=== PATIENT | male | born 1970 | race Caucasian/White ===

== ENCOUNTER 2018-09-29 06:45 | Emergency (ER) | payer BC, MEDICAID ==
[2018-09-29 06:50] VITALS: TEMP 98.5
--- NOTE | 2018-09-29 07:18 | XR ---
EXAMINATION TYPE: XR chest 2V DATE OF EXAM: 09/29/2018 COMPARISON: None HISTORY: 47-year-old male with pain and cough TECHNIQUE: PA and lateral views FINDINGS: Low lung volumes and cardiovascular markings. Heart normal size. Mild interstitial prominence is a ov erall chronic appearance. Slight eventration anterior hemidiaphragm. No lucero consolidation or pleura l effusion. IMPRESSION: Mild interstitial prominence, probably chronic, possible bronchitis/asthma. Otherwise, no acute proce ss seen.
[2018-09-29] MEDS ORDERED: KETOROLAC 30 MG/ML 1 ML VIAL IM STA (07:37)
[2018-09-29] MEDS ORDERED: LIDOCAINE 5% PATCH TOPICAL STA (07:37)
--- NOTE | 2018-09-29 07:40 | ED ---
General Adult HPI - General Chief complaint: Shortness of Breath Stated complaint: cough,chest pain Source: patient, family Mode of arrival: wheelchair Limitations: no limitations - Related Data Home Medications Medication Instructions Recorded Confirmed metFORMIN HCL 1,000 mg PO BID 10/07/16 10/07/16 Allergies Allergy/AdvReac Type Severity Reaction Status Date / Time No Known Allergies Allergy Verified 09/29/18 06:50 Review of Systems ROS Statement: Those systems with pertinent positive or pertinent negative responses have been documented in the HPI. ROS Other: All systems not noted in ROS Statement are negative. Past Medical History Past Medical History: Diabetes Mellitus, Hyperlipidemia, Hypertension History of Any Multi-Drug Resistant Organisms: None Reported Past Surgical History: Bariatric Surgery Additional Past Surgical History / Comment(s): lap band Past Anesthesia/Blood Transfusion Reactions: Unable to Obtain Past Psychological History: No Psychological Hx Reported Smoking Status: Never smoker Past Alcohol Use History: None Reported Past Drug Use History: None Reported General Exam Limitations: no limitations Course Vital Signs 09/29/18 06:48 Temperature 98.5 F Pulse Rate 93 Respiratory 20 Rate Blood Pressure 153/96 O2 Sat by Pulse 98 Oximetry Medical Decision Making - Medical Decision Making Dictation was produced using [email or web address] dictation software. please excuse any grammatical, word or spelling errors. Chief Complaint: 47-year-old male with past medical history diabetes hyperlipidemia and hypertension presents with right-sided chest pain. History of Present Illness: He is a 47-year-old male. He presents with right- sided chest pain. Patient has been feeling sick for the last 5 days. Today he came to the emergency department as well as coughing he immediately felt intense right-sided sharp chest pain. Troponin the household is sick. Patient states his coughing and flulike symptoms have improved. Patient denies any shortness of breath. Denies any lower extremity symptoms. The ROS documented in this emergency department record has been reviewed and confirmed by me. Those systems with pertinent positive or negative responses have been documented in the HPI. All other systems are other negative and/or noncontributory. PHYSICAL EXAM: General Impression: Alert and oriented x3, not in acute distress HEENT: Normocephalic atraumatic, extra-ocular movements intact, pupils equal and reactive to light bilaterally, mucous membranes moist. Cardiovascular: Heart regular rate and rhythm, S1&S2 audible, no murmurs, rubs or gallops Chest: Lungs clear to auscultation bilaterally, no rhonchi, no wheeze, no rales Abdomen: Bowel sounds present, abdomen soft, non-tender, non-distended, no organomegaly Musculoskeletal: Pulses present and equal in all extremities, no peripheral edema Motor: Power 5/5 bilaterally, no focal deficits noted Neurological: CN II-XII grossly intact, no focal motor or sensory deficits noted Skin: Intact with no visualized rashes Psych: Normal affect and mood ED course:-year-old male 47-year-old male with clinical presentation consistent with acute chest strain secondary to coughing. Vital signs upon arrival are within acceptable limits. Influenza test was performed with positive results for influenza A. Chest x-ray was obtained showing mild interstitial prominence. Discussed with secondary to viral etiology. Patient given lidocaine patch and Toradol IM shot.. Told to rest for today and tomorrow. Advised to stay away from their old very young and possibly . Rest of arm care physician upon discharge. - Lab Data Lab Results 09/29/18 Range/Units 06:58 Influenza Type A RNA Detected H (Not Detectd) Influenza Type B (PCR) Not Detected (Not Detectd) Disposition Clinical Impression: Chest wall muscle strain Disposition: HOME SELF-CARE Condition: Good Instructions: Chest Pain (ED) Is patient prescribed a controlled substance at d/c from ED?: No Referrals: Jeffrey Herrera III, MD [Primary Care Provider] - 1-2 days Time of Disposition: 07:39
[2018-09-29 08:00] VITALS: BP 158/94; PULSE 91; RESP 18
== END 2018-09-29 08:00 | disposition home or self-care (01) ==
LOC: EC 06:45
DX: S29.011A Strain of muscle and tendon of front wall of thorax, initial encounter (principal); J11.1 Influenza due to unidentified influenza virus with other respiratory manifestations; E11.9 Type 2 diabetes mellitus without complications; Z79.84 Long term (current) use of oral hypoglycemic drugs; Z98.84 Bariatric surgery status; X50.9XXA Other and unspecified overexertion or strenuous movements or postures, initial encounter
CPT/HCPCS: 87502; 71046; 99285; 96372; J1885

== ENCOUNTER 2018-10-22 18:24 | Observation (INO) | payer MEDICAID ==
--- NOTE | 2018-10-22 18:33 | US ---
EXAMINATION TYPE: US venous doppler duplex LE LT DATE OF EXAM: 10/22/2018 6:13 PM COMPARISON: NONE CLINICAL HISTORY: M79.605 Pain in left leg. SIDE PERFORMED: TECHNIQUE: The lower extremity deep venous system is examined utilizing real time linear array sonog raya with graded compression, doppler sonography and color-flow sonography. VESSELS IMAGED: External Iliac Vein (EIV) Common Femoral Vein Deep Femoral Vein Greater Saphenous Vein * Femoral Vein Popliteal Vein Small Saphenous Vein * Proximal Calf Veins (* superficial vessels) Left Leg: Positive for DVT from EIV through distal femoral vein. There is some flow in popliteal v, but this vessel is not compressible. IMPRESSION: There is evidence of acute deep venous thrombosis in the left femoral vein. There is also involvement of the external iliac vein.
[2018-10-22] MEDS ORDERED: HEPARIN SODIUM,PORCINE 10,000 UNIT/ML 1 ML VIAL IV ONE (18:55)
[2018-10-22] MEDS ORDERED: HEPARIN SODIUM,PORCINE 5,000 UNIT/ML 1 ML VIAL IV PRN (18:55)
[2018-10-22] MEDS ORDERED: NALOXONE 0.4 MG/ML 1 ML VIAL IV PRN (18:56)
--- NOTE | 2018-10-22 19:00 | ED ---
General Adult HPI - General Chief complaint: Extremity Problem,Nontraumatic Stated complaint: positive DVT Time Seen by Provider: 10/22/18 18:32 Source: patient, RN notes reviewed Mode of arrival: wheelchair Limitations: no limitations - History of Present Illness Initial comments: Patient is a pleasant 47-year-old male presenting to the emergency Department with complaints of left leg swelling. Symptoms have progressed over the past 2- 3 weeks. Patient is having some discomfort. Discomfort is the However somewhat the thighs well. Patient states symptoms do worsen when he coughs. Patient did have some right lower chest discomfort and cough several weeks ago however has had none since that time. No chest discomfort or difficulty breathing at this time. No history of previous blood clot. Patient does frequently drive long periods of time. - Related Data Home Medications Medication Instructions Recorded Confirmed Empagliflozin [Jardiance] 25 mg PO DAILY 10/22/18 10/22/18 metFORMIN HCL ER [Glucophage Xr] 1,000 mg PO AC-BID 10/22/18 10/22/18 sitaGLIPtin [Januvia] 100 mg PO DAILY 10/22/18 10/22/18 Allergies Allergy/AdvReac Type Severity Reaction Status Date / Time No Known Allergies Allergy Verified 10/22/18 18:43 Review of Systems ROS Statement: Those systems with pertinent positive or pertinent negative responses have been documented in the HPI. ROS Other: All systems not noted in ROS Statement are negative. Constitutional: Denies: fever Eyes: Denies: eye pain ENT: Denies: ear pain Respiratory: Denies: cough, dyspnea Cardiovascular: Denies: chest pain Endocrine: Denies: fatigue Gastrointestinal: Denies: abdominal pain Genitourinary: Denies: dysuria Musculoskeletal: Denies: back pain Skin: Denies: rash Neurological: Denies: weakness Past Medical History Past Medical History: Diabetes Mellitus, Hyperlipidemia, Hypertension History of Any Multi-Drug Resistant Organisms: None Reported Past Surgical History: Bariatric Surgery Additional Past Surgical History / Comment(s): lap band Past Anesthesia/Blood Transfusion Reactions: Unable to Obtain Past Psychological History: No Psychological Hx Reported Smoking Status: Never smoker Past Alcohol Use History: None Reported Past Drug Use History: None Reported General Exam Limitations: no limitations General appearance: alert, in no apparent distress Head exam: Present: atraumatic Eye exam: Present: normal appearance, PERRL ENT exam: Present: normal oropharynx Neck exam: Present: normal inspection Respiratory exam: Present: normal lung sounds bilaterally. Absent: chest wall tenderness Cardiovascular Exam: Present: tachycardia Expanded Peripheral pulses: 2+: Dorsalis Pedis (R), Dorsalis Pedis (L) GI/Abdominal exam: Present: soft. Absent: tenderness Extremities exam: Present: calf tenderness (Patient has left leg and calf swelling and tenderness. No erythema.) Neurological exam: Present: alert Psychiatric exam: Present: normal affect, normal mood Skin exam: Present: normal color Course Vital Signs 10/22/18 18:27 Temperature 99 F Pulse Rate 110 H Respiratory 18 Rate Blood Pressure 152/95 O2 Sat by Pulse 95 Oximetry Medical Decision Making - Medical Decision Making Case was discussed with Dr. Beckman who did see the patient earlier. Case was also discussed with practitioner Nancy, covering for Dr. Ruiz, who will admit. Disposition Clinical Impression: Iliac DVT (deep venous thrombosis) Disposition: ADMITTED IP TO THIS HOSP Is patient prescribed a controlled substance at d/c from ED?: No Referrals: Antonio Valadez MD [Primary Care Provider] - 1-2 days Decision Time: 19:00
[2018-10-22 19:23] LABS: Basophils % (A) 0 %; Eosinophils # (A) 0.2 k/uL (0-0.7); Eosinophils % (A) 3 %; HCT 47.3 % (39.0-53.0); HGB 16.3 gm/dL (13.0-17.5); Lymphocytes # (A) 1.8 k/uL (1.0-4.8); Lymphocytes % (A) 24 %; MCHC 34.4 g/dL (31.0-37.0); MCV 87.1 fL (80.0-100.0); Mean Platelet Volume 7.1; Monocytes # (A) 0.4 k/uL (0-1.0); Monocytes % (A) 5 %; Neutrophils # (A) 5.1 k/uL (1.3-7.7); Neutrophils % (A) 65 %; Platelet Count 166 k/uL (150-450); RBC 5.43 m/uL (4.30-5.90); RDW 13.7 % (11.5-15.5); WBC 7.8 k/uL (3.8-10.6)
[2018-10-22 19:31] LABS: INR 0.9 (<1.2)
[2018-10-22 19:36] LABS: ALT 26 U/L (21-72); AST 18 U/L (17-59); Albumin 4.1 g/dL (3.5-5.0); Alkaline Phosphatase 91 U/L (38-126); Anion Gap 7 mmol/L; Blood Urea Nitrogen 15 mg/dL (9-20); Calcium 9.9 mg/dL (8.4-10.2); Carbon Dioxide 26 mmol/L (22-30); Chloride 104 mmol/L (98-107); Glucose 207 mg/dL (74-99); Potassium 4.3 mmol/L (3.5-5.1); Sodium 137 mmol/L (137-145); Total Bilirubin 0.7 mg/dL (0.2-1.3); Total Protein 7.3 g/dL (6.3-8.2)
[2018-10-22] MEDS: HEPARIN SOD,PORK IN 0.45% NACL 25,000 UNIT in 0.45% NACL 1 250ML.BAG IV SCH (19:47)
[2018-10-22] MEDS: SODIUM CHLORIDE 0.9% 1,000 ML IV SCH (19:50)
[2018-10-22 20:08] VITALS: BMI 30.7
[2018-10-22 21:41] LABS: Glucose,Whole Blood 168 mg/dL (75-99)
[2018-10-23 07:48] LABS: Glucose,Whole Blood 152 mg/dL (75-99)
[2018-10-23] MEDS: INSULIN ASPART (NovoLOG) 100 UNIT/ML VIAL SQ SCH ×3 (08:47→22:01)
[2018-10-23] MEDS: HEPARIN SOD,PORK IN 0.45% NACL 25,000 UNIT in 0.45% NACL 1 250ML.BAG IV SCH (09:12)
--- NOTE | 2018-10-23 11:47 | CONS ---
CONSULTATION This is a 47-year-old gentleman who came to the emergency room last night with history of swelling and discomfort left lower extremity for the past month. The patient was seen by his family physician and he has been to the emergency room for common cold. When he came yesterday he had ultrasound done which showed DVT noted in the femoral and external iliac vein. The patient has no history of shortness of breath or chest pain. MEDICAL HISTORY: History of hypertension, history of type 2 diabetes. SURGICAL HISTORY: Patient had bariatric surgery done in the past for obesity and also had some right patellar surgery done in the past. PERSONAL HISTORY: No known allergies. Nonsmoker. PHYSICAL EXAMINATION: On examination, patient was seen in his room, lying comfortably in bed. Neck is supple. No bruit appreciated. Chest is clear on auscultation. First and second sounds normal. ABDOMEN: Soft, nontender. VASCULAR EXAMINATION: Brachial, radial, femoral pulses are palpable. Posterior tibial, dorsal pedis palpable. Patient has a varicosity on the medial aspect of the thigh with some redness and tenderness noted, some cord-like appearance of the medial aspect of the thigh which is tender on palpation. IMPRESSION: Deep venous thrombosis of the left leg with superficial thrombophlebitis involving the varicosity with cord-like appearance most likely a clot into the varicosities. The patient is on heparin. Advised to have a GRACE hose thigh-high and continue with heparin. We have discussed all the options. Clot is almost a month old. We have discussed about possible tPA. In the meantime, we will continue with heparin and we will be re-evaluate him. MMODL / IJN: [id number] /
[2018-10-23 12:18] LABS: Glucose,Whole Blood 186 mg/dL (75-99)
[2018-10-23] MEDS ORDERED: HEPARIN SODIUM,PORCINE 5,000 UNIT/ML 1 ML VIAL ONE (13:00)
[2018-10-23 18:47] LABS: Glucose,Whole Blood 194 mg/dL (75-99)
[2018-10-23 21:19] LABS: Glucose,Whole Blood 287 mg/dL (75-99)
[2018-10-23 21:56] LABS: Basophils # (A) 0.1 k/uL (0-0.2); Basophils % (A) 1 %; Eosinophils # (A) 0.2 k/uL (0-0.7); Eosinophils % (A) 3 %; HGB 15.4 gm/dL (13.0-17.5); Lymphocytes # (A) 2.1 k/uL (1.0-4.8); Lymphocytes % (A) 31 %; MCH 29.8 pg (25.0-35.0); MCHC 33.6 g/dL (31.0-37.0); MCV 88.9 fL (80.0-100.0); Mean Platelet Volume 7.2; Monocytes # (A) 0.3 k/uL (0-1.0); Monocytes % (A) 5 %; Neutrophils # (A) 3.8 k/uL (1.3-7.7); Neutrophils % (A) 58 %; Platelet Count 172 k/uL (150-450); RBC 5.18 m/uL (4.30-5.90); RDW 13.6 % (11.5-15.5); WBC 6.7 k/uL (3.8-10.6)
[2018-10-23] MEDS: SODIUM CHLORIDE 0.9% 1,000 ML IV SCH (21:59)
[2018-10-24] MEDS: HEPARIN SOD,PORK IN 0.45% NACL 25,000 UNIT in 0.45% NACL 1 250ML.BAG IV SCH ×2 (01:41→14:28)
[2018-10-24 07:28] LABS: Glucose,Whole Blood 160 mg/dL (75-99)
[2018-10-24 08:03] LABS: Basophils % (A) 1 %; Eosinophils # (A) 0.2 k/uL (0-0.7); Eosinophils % (A) 4 %; HCT 46.1 % (39.0-53.0); HGB 15.1 gm/dL (13.0-17.5); Lymphocytes # (A) 1.6 k/uL (1.0-4.8); Lymphocytes % (A) 28 %; MCHC 32.7 g/dL (31.0-37.0); MCV 88.5 fL (80.0-100.0); Mean Platelet Volume 6.9; Monocytes # (A) 0.3 k/uL (0-1.0); Monocytes % (A) 5 %; Neutrophils # (A) 3.6 k/uL (1.3-7.7); Neutrophils % (A) 60 %; Platelet Count 180 k/uL (150-450); RDW 13.6 % (11.5-15.5)
[2018-10-24] MEDS ORDERED: HEPARIN SODIUM,PORCINE 5,000 UNIT/ML 1 ML VIAL IV STA (08:43)
[2018-10-24] MEDS: INSULIN ASPART (NovoLOG) 100 UNIT/ML VIAL SQ SCH ×4 (08:48→21:09)
[2018-10-24 11:50] LABS: Glucose,Whole Blood 162 mg/dL (75-99)
--- NOTE | 2018-10-24 12:11 | P.HPIM ---
History of Present Illness H&P Date: 10/23/18 Chief Complaint: Left leg swelling Patient is a 47-year-old male with a known history of hypertension, diabetes type 2, GERD and osteoarthritis came to ER with complaints of left leg swelling initially started on September 28. Patient did have flulike symptoms at the time and was sleeping on the couch with legs extended for 2-3 days. Patient's started having pain on the medial side of the knee and gradually going up to the upper thigh and groin area. Patient was seen by primary care physician and thought of due to bursitis. Patient was given pain medications and which did not improve his symptoms. Patient was having worsening leg swelling which made him come to the hospital for evaluation. However denied any complaints of shortness of breath. Patient was also having cough with some right lower chest discomfort. Denied any pleuritic chest pain with deep breathing. No nausea vomiting or diarrhea. No recent illnesses otherwise. Patient denied any history of previous clots or blood clots in the family. No history of cancer. Left lower extremity duplex showed positive for DVT from E IV through distal femoral vein. There is some flow in the popliteal vein but this vessel is not compressible. There is evidence of acute DVT in the left femoral vein. There is also involvement of the external iliac vein. Review of Systems Constitutional: Patient denies any fever or chills . No generalized weakness or weight loss. Abdomen: Patient denied nausea vomiting and diarrhea and abdominal pain. Cardiovascular: Patient denies any chest pain or short of breath no palpitations. Respiratory: patient denied any cough is from production. No shortness of breath Neurologic: Patient denied any numbness or tingling headache. Musculoskeletal: Patient denies any complaints of joint swelling or deformity. Left leg swelling and pain Skin: Negative Psychiatric: Negative Endocrine: No heat or cold intolerance. No recent weight gain. Genitourinary: No dysuria or hematuria. All other 14 point ROS negative except the above Past Medical History Past Medical History: Diabetes Mellitus, GERD/Reflux, Hyperlipidemia, Hypertension, Osteoarthritis (OA), Pneumonia Additional Past Medical History / Comment(s): RECENT FLU A ON 09-29-18. HX GERD PRIOR TO LAP BAND SX, CHRONIC BACK PAIN. PT STATED HAS HAD BOTH THE FLU AND PNE VACCINE BUT NOT SURE OF DATE- SERVICE REPRESENTATIVE UNBALE TO VERIFY DATES AT ATIME OF ADMIT D/ T DR OFFICE CLOSED. PLEASE F/U IN AM. History of Any Multi-Drug Resistant Organisms: None Reported Past Surgical History: Appendectomy, Bariatric Surgery, Orthopedic Surgery Additional Past Surgical History / Comment(s): lap band 2008. RT KNEE ACL REPAIR Past Anesthesia/Blood Transfusion Reactions: No Reported Reaction Additional Past Anesthesia/Blood Transfusion Reaction / Comment(s): HAS NEVER RECIEVED ANY BLOOD TRANSFUSION Smoking Status: Never smoker - Past Family History Mother Family Medical History: Diabetes Mellitus Father Family Medical History: Cancer Additional Family Medical History / Comment(s): METASTAITC LUNG CANCER. PAST HEAVY SMOKER Medications and Allergies Home Medications Medication Instructions Recorded Confirmed Type Empagliflozin [Jardiance] 25 mg PO DAILY 10/22/18 10/22/18 History metFORMIN HCL ER [Glucophage Xr] 1,000 mg PO AC-BID 10/22/18 10/22/18 History sitaGLIPtin [Januvia] 100 mg PO DAILY 10/22/18 10/22/18 History Allergies Allergy/AdvReac Type Severity Reaction Status Date / Time No Known Allergies Allergy Verified 10/22/18 18:43 Physical Exam Vitals: Vital Signs Temp Pulse Pulse Resp BP BP Pulse Ox 10/23/18 06:05 98.4 F 95 18 116/74 93 L 10/22/18 21:41 99.2 F 109 H 20 131/88 97 10/22/18 21:15 99.2 F 109 H 20 131/88 97 10/22/18 20:29 102 H 18 142/97 99 10/22/18 19:30 100 18 165/95 95 10/22/18 18:27 99 F 110 H 18 152/95 95 Intake and Output 10/22/18 10/23/18 10/23/18 22:59 06:59 14:59 Intake Total 300 320.631 83.776 Output Total 800 Balance 300 320.631 -716.224 Intake: Intake, IV Titration 120.631 83.776 Amount Heparin Sod,Pork in 0.45% 120.631 83.776 NaCl 25,000 unit In 0.45 % NaCl 1 250ml.bag @ 18 UNITS/KG/HR 17.96 mls/hr IV .[id number] [facility] Rx#: [id number] Oral 300 200 Output: Urine 800 Other: # Voids 0 0 1 Weight 99.79 kg PHYSICAL EXAMINATION: Patient is lying in the bed comfortably, no acute distress, awake alert and oriented.. HEENT: Normocephalic. Neck is supple. Pupils reactive. Nostrils clear. Oral cavity is moist. Ears reveal no drainage. Neck reveals no JVD, carotid bruits, or thyromegaly. CHEST EXAMINATION: Trachea is central. Symmetrical expansion. Lung gonzalez clear to auscultation and percussion. CARDIAC: Normal S1, S2 with no gallops. No murmurs ABDOMEN: Soft. Bowel sounds normal. No organomegaly. No abdominal bruits. Extremities: Left lower extremities swelling and mild tenderness of the medial thigh. No clubbing or cyanosis Neurologically awake, alert, oriented x3 with well-coordinated movements. No focal deficits noted Skin: No rash or skin lesions. Psychiatric: Coperative. Nonsuicidal Musculoskeletal: No joint swelling or deformity. Normal range of motion. Results CBC & Chem 7: 10/24/18 07:44 10/22/18 19:10 Labs: Abnormal Lab Results - Last 24 Hours (Table) 10/22/18 10/22/18 10/23/18 Range/Units 19:10 21:38 01:39 APTT 104.9 H* (22.0-30.0) sec Glucose 207 H (74-99) mg/dL POC Glucose (mg/dL) 168 H (75-99) mg/dL 10/23/18 Range/Units 07:26 APTT (22.0-30.0) sec Glucose (74-99) mg/dL POC Glucose (mg/dL) 152 H (75-99) mg/dL Thrombosis Risk Factor Assmnt - DVT/VTE Prophylaxis DVT/VTE Prophylaxis: Pharmacologic Prophylaxis ordered, Mechanical Prophylaxis ordered - Choose All That Apply Any of the Below Risk Factors Present?: Yes Each Factor Represents 1 point: Age 41-60 years, Obesity (BMI >25), Swollen legs (current) Other Risk Factors: Yes Each Risk Factor Represents 3 Points: History of DVT/PE Thrombosis Risk Factor Assessment Total Risk Factor Score: 6 Thrombosis Risk Factor Assessment Level: High Risk Assessment and Plan Assessment: Left femoral vein and external iliac acute DVT Hypertension Diabetes type 2 GERD Osteoarthritis History of lap band surgery in the past Chronic back pain History of flu like symptoms about 3 weeks ago Plan: Patient is a 47-year-old male was admitted to the hospital with left lower extremities swelling and found to have left femoral DVT. Etiology could be microvascular injury. No history of prior DVT or cancers. Patient is otherwise active with no problems with mobility. Recommended 6 months of full anticoagulation. Patient will be continued on heparin drip. Vascular surgery was consulted due to external iliac vein involvement. Continue the home medications for hypertension and diabetes type 2 and pain management. Further recommendations based on the clinical course. Time with Patient: Greater than 30
[2018-10-24] MEDS: RIVAROXABAN 15 MG TAB PO SCH ×2 (12:22→21:08)
--- NOTE | 2018-10-24 17:19 | PN ---
PROGRESS NOTE This is a 47 -year-old gentleman. Patient came with DVT of left lower extremity of more than 3 weeks duration. Patient had an ultrasound positive for DVT. Also, patient has a thrombophlebitis of the varicosities on the medial aspect of the thigh, cord-like appearance noted. The patient has no vascular compromise. The patient is on heparin which will be continued. I advised to have thigh high stocking and continue with heparin. Patient will be converted to p.o. anticoagulation. We will follow with you. NAHEED / IJN: [id number] /
[2018-10-24 17:25] LABS: Glucose,Whole Blood 185 mg/dL (75-99)
[2018-10-24 20:38] LABS: Glucose,Whole Blood 185 mg/dL (75-99)
[2018-10-24] MEDS: SODIUM CHLORIDE 0.9% 1,000 ML IV SCH (21:09)
--- NOTE | 2018-10-25 01:55 | P.PN ---
Subjective Progress Note Date: 10/24/18 Principal diagnosis: Left femoral and external iliac DVT acute Patient is a 47-year-old male with a known history of hypertension, diabetes type 2, GERD and osteoarthritis came to ER with complaints of left leg swelling initially started on September 28. Patient did have flulike symptoms at the time and was sleeping on the couch with legs extended for 2-3 days. Patient's started having pain on the medial side of the knee and gradually going up to the upper thigh and groin area. Patient was seen by primary care physician and thought of due to bursitis. Patient was given pain medications and which did not improve his symptoms. Patient was having worsening leg swelling which made him come to the hospital for evaluation. However denied any complaints of shortness of breath. Patient was also having cough with some right lower chest discomfort. Denied any pleuritic chest pain with deep breathing. No nausea vomiting or diarrhea. No recent illnesses otherwise. Patient denied any history of previous clots or blood clots in the family. No history of cancer. Left lower extremity duplex showed positive for DVT from E IV through distal femoral vein. There is some flow in the popliteal vein but this vessel is not compressible. There is evidence of acute DVT in the left femoral vein. There is also involvement of the external iliac vein. 10/24/2018 Patient says that his leg swelling is better today. Pain improved as well. Patient is being continued on heparin drip. Will start on xarelto. 15 mg twice a day and will send prescription to pharmacy tomorrow. No complaints of chest pain or short of breath. No nausea vomiting or abdominal pain. No other acute overnight issues. Anticipate discharged tomorrow. Current medications reviewed Objective - Vital Signs Vital signs: Vital Signs Temp 98.2 F 10/24/18 06:15 Pulse 88 10/24/18 06:15 Resp 18 10/24/18 06:15 BP 125/80 10/24/18 06:15 Pulse Ox 92 L 10/24/18 06:15 Intake & Output 10/23/18 10/24/18 10/24/18 18:59 06:59 18:59 Intake Total 83.776 1171.591 109.208 Output Total 800 Balance -797.077 9528.591 109.208 Intake: Intake, IV Titration 83.776 246.591 109.208 Amount Heparin Sod,Pork in 0.45% 83.776 246.591 109.208 NaCl 25,000 unit In 0.45 % NaCl 1 250ml.bag @ 18 UNITS/KG/HR 17.96 mls/hr IV .[id number] [facility] Rx#: [id number] Oral 925 Output: Urine 800 Other: # Voids 1 1 - Exam PHYSICAL EXAMINATION: Patient is lying in the bed comfortably, no acute distress, awake alert and oriented.. HEENT: Normocephalic. Neck is supple. Pupils reactive. Nostrils clear. Oral cavity is moist. Ears reveal no drainage. Neck reveals no JVD, carotid bruits, or thyromegaly. CHEST EXAMINATION: Trachea is central. Symmetrical expansion. Lung gonzalez clear to auscultation and percussion. CARDIAC: Normal S1, S2 with no gallops. No murmurs ABDOMEN: Soft. Bowel sounds normal. No organomegaly. No abdominal bruits. Extremities: Left lower extremity swelling and tenderness over left medial side. No clubbing or cyanosis Neurologically awake, alert, oriented x3 with well-coordinated movements. No focal deficits noted Skin: No rash or skin lesions. Psychiatric: Coperative. Nonsuicidal Musculoskeletal: No joint swelling or deformity. Normal range of motion. - Labs CBC & Chem 7: 10/24/18 07:44 10/22/18 19:10 Labs: Abnormal Lab Results - Last 24 Hours (Table) 10/23/18 10/23/18 10/23/18 Range/Units 10:35 12:00 16:58 APTT 49.0 H (22.0-30.0) sec POC Glucose (mg/dL) 186 H 194 H (75-99) mg/dL 10/23/18 10/24/18 10/24/18 Range/Units 21:01 07:25 07:44 APTT 45.9 H (22.0-30.0) sec POC Glucose (mg/dL) 287 H 160 H (75-99) mg/dL 10/24/18 Range/Units 11:47 APTT (22.0-30.0) sec POC Glucose (mg/dL) 162 H (75-99) mg/dL Assessment and Plan Assessment: Left femoral vein and external iliac acute DVT Thrombophlebitis Hypertension Diabetes type 2 GERD Osteoarthritis History of lap band surgery in the past Chronic back pain History of flu like symptoms about 3 weeks ago Plan: Patient is a 47-year-old male was admitted to the hospital with left lower extremities swelling and found to have left femoral DVT. Etiology could be microvascular injury. No history of prior DVT or cancers. Patient is otherwise active with no problems with mobility. Recommended 6 months of full anticoagulation. Patient was continued on heparin drip. Changed to xarelto. Vascular surgery was consulted due to external iliac vein involvement. No intervention at this time. Continue the home medications for hypertension and diabetes type 2 and pain management. Further recommendations based on the clinical course. Time with Patient: Greater than 30
[2018-10-25 07:32] LABS: Glucose,Whole Blood 153 mg/dL (75-99)
[2018-10-25] MEDS: INSULIN ASPART (NovoLOG) 100 UNIT/ML VIAL SQ SCH ×2 (08:06→12:37)
[2018-10-25] MEDS: RIVAROXABAN 15 MG TAB PO SCH (08:06)
[2018-10-25 09:17] LABS: Basophils % (A) 1 %; Eosinophils # (A) 0.2 k/uL (0-0.7); Eosinophils % (A) 4 %; HCT 47.7 % (39.0-53.0); HGB 16.2 gm/dL (13.0-17.5); Lymphocytes # (A) 1.6 k/uL (1.0-4.8); Lymphocytes % (A) 27 %; MCH 29.7 pg (25.0-35.0); MCV 87.4 fL (80.0-100.0); Mean Platelet Volume 6.6; Monocytes # (A) 0.3 k/uL (0-1.0); Monocytes % (A) 5 %; Neutrophils # (A) 3.6 k/uL (1.3-7.7); Neutrophils % (A) 61 %; Platelet Count 194 k/uL (150-450); RBC 5.47 m/uL (4.30-5.90); RDW 13.6 % (11.5-15.5); WBC 5.9 k/uL (3.8-10.6)
[2018-10-25 11:27] LABS: Hemoglobin A1C 11.2 % (4.0-6.0)
[2018-10-25 12:16] LABS: Glucose,Whole Blood 234 mg/dL (75-99)
--- NOTE | 2018-10-25 13:02 | PN ---
PROGRESS NOTE This is a 47-year-old gentleman who came with DVT of the left lower extremity involving the femoral and popliteal vein. The patient has been treated with heparin and patient put on Xarelto. No history of chest pain. The patient has GRACE hose. Patient has no calf tenderness. The patient has some phlebitis of the varicosity on the mid aspect of the thigh. PLAN: The patient will be going home. I will follow in my office next Thursday. NAHEED / CHAD: [id number] /
[2018-10-25 14:30] VITALS: BP 130/80; PULSE 94; RESP 16; TEMP 98
--- NOTE | 2018-10-25 23:30 | P.DS ---
Providers Date of admission: 10/22/18 19:00 Attending physician: Rigoberto Ruiz Consults: 10/23/18 10:25 Consult Physician Urgent Consulting Provider: Yuan Cha Consult Reason/Comments: DVT left femoral, and external iliac Do you want consulting provider notified?: Yes Primary care physician: Allyson Hager [place] Course: Diagnoses: Acute Left femoral vein and external iliac acute DVT Left medial thigh Thrombophlebitis Hypertension, essential Diabetes type 2 History of GERD Osteoarthritis History of lap band surgery in the past Chronic back pain History of upper respiratory tract symptoms about 3 weeks ago, currently asymptomatic Hospital course: This is a pleasant 47 years old male who presents because of left side DVT, his left leg swelling and pain have resolved. Patient was started on 0 to and he will continue on that upon discharge. Dr. Cha from vascular surgery evaluated the patient's, with no plan for surgical intervention but to follow- up with him as an outpatient and patient is aware of this.Patient was cleared by surgical team for discharge Problems and management plan was discussed with the patient and he verbalized understanding and acceptance Patient was found stable and can be discharged home however he needs follow-up as an outpatient. pt was instructed to f/u with his pcp in one week and he agrees with vascular surgery appointment. prescription for xarelto is provided , pt is counseled about compliance to therapy and risk of non adherence, he verbalized understanding and acceptance Gen: patient is a AAOx3, no distress CVS: S1-S2, RRR, no murmur Lungs: B/L CTA, no wheezing Abdomen: soft, no distention, no tenderness, positive bowel sounds Extremity: no leg edema or induration. Cord like Left leg vein is palpable on the medial side of the left thigh no cellulitis or erythema. Time spent more than 35 minutes Plan - Discharge Summary Discharge Rx Participant: Yes New Discharge Prescriptions: New Rivaroxaban [Xarelto] 15 mg PO BID-W/MEALS #60 tab Continue sitaGLIPtin [Januvia] 100 mg PO DAILY metFORMIN HCL ER [Glucophage Xr] 1,000 mg PO AC-BID Empagliflozin [Jardiance] 25 mg PO DAILY Discharge Medication List Empagliflozin [Jardiance] 25 mg PO DAILY 10/22/18 [History] metFORMIN HCL ER [Glucophage Xr] 1,000 mg PO AC-BID 10/22/18 [History] sitaGLIPtin [Januvia] 100 mg PO DAILY 10/22/18 [History] Rivaroxaban [Xarelto] 15 mg PO BID-W/MEALS #60 tab 10/25/18 [Rx] Follow up Appointment(s)/Referral(s): Antonio Valadez MD [Primary Care Provider] - 1-2 days (please call for appointment, office is currently closed.) Yuan Cha MD [STAFF PHYSICIAN] - 11/03/18 12:00 pm Patient Instructions/Handouts: Deep Vein Thrombosis (DC), Type 2 Diabetes in Adults: New Diagnosis (DC), Return to Work Instructions (DC) Activity/Diet/Wound Care/Special Instructions: diabetic 180 Kcal per day activity is limited till you see your doctor off work until seen and cleared by Dr. Cha on ThursdayNovember 03. Discharge Disposition: HOME SELF-CARE
== END 2018-10-25 14:53 | disposition home or self-care (01) ==
LOC: EC 18:24 → 4MS4W 19:00
PROVIDERS: ADMIT Internal Medicine; ATTEND Internal Medicine
DX: I82.412 Acute embolism and thrombosis of left femoral vein (principal); I82.422 Acute embolism and thrombosis of left iliac vein; I10 Essential (primary) hypertension; E78.5 Hyperlipidemia, unspecified; E11.9 Type 2 diabetes mellitus without complications; E66.9 Obesity, unspecified; Z68.30 Body mass index [BMI] 30.0-30.9, adult; G89.29 Other chronic pain; M54.9 Dorsalgia, unspecified; R00.0 Tachycardia, unspecified; M19.90 Unspecified osteoarthritis, unspecified site; K21.9 Gastro-esophageal reflux disease without esophagitis; I83.92 Asymptomatic varicose veins of left lower extremity; Z79.84 Long term (current) use of oral hypoglycemic drugs; Z98.84 Bariatric surgery status; Z83.3 Family history of diabetes mellitus; Z80.1 Family history of malignant neoplasm of trachea, bronchus and lung; Z81.2 Family history of tobacco abuse and dependence
CPT/HCPCS: 96376 ×2; 96366 ×3; 96365; 99285; 36415; 80053; 85025 ×4; 85610; 85730 ×3; 83036; 93971; G0378 ×4; J1644 ×6

== ENCOUNTER → 2019-02-08 | Outpatient (CLI) | payer MEDICAID ==
--- NOTE | 2019-02-08 11:47 | FL ---
EXAMINATION TYPE: FL barium swallow DATE OF EXAM: 02/08/2019 CLINICAL INDICATION: 48 year-old male dysphasia, morbid obesity. Patient developed a problem with ref lux 6 months ago. Some of the lap band fill was removed and condition improves. Lap band placed into thousand 9. COMPARISON: None Total Fluoroscopy Time: 1 minute 25 seconds. Total images: 17 FINDINGS: The patient swallowed thin barium without difficulty or delay. A total of 2.5 ounces was ingested. Th ere is normal course of the thoracic esophagus. The lower thoracic esophagus is slightly patulous. Th ere is a thin stream of contrast which intermittently traverses the lap band. There are moderate tert iary peristaltic waves within the distal esophagus with recurrent bouts of intraesophageal reflux. Re sidual contrast remains pooled in the lower esophagus. On the 2 minute post procedure radiograph, amilcar e residual contrast is noted in the distal esophagus. Most has passed into the jejunum. IMPRESSION: 1. No evidence for left and prolapse. 2. The lap band appears somewhat tight with a patulous lower esophagus. The patient ingested only 2.5 ounces of thin barium and 2 minutes after the exam, some residual contrast remains in the lower esop hagus. Tertiary peristalsis with recurrent bouts of intraesophageal reflux are demonstrated. Most of the contrast has passed into the jejunum.
[2019-02-08 13:35] VITALS: BP 132/89; PULSE 96; RESP 16; TEMP 98.9; BMI 33.5
--- NOTE | 2019-02-08 14:02 | P.BASOAP ---
Subjective Progress Note Date: 02/08/19 Principal diagnosis: Morbid obesity Patient returns today for reevaluation. Last seen earlier this year at [facility]. Patient was having some dysphagia symptoms. His band was loosened. Since that time his symptoms have resolved. Today's upper GI performed shows mild delay at the level of the lap band. Mild reflux noted. No evidence of erosion or prolapse. Objective - Vital Signs Vital signs: Vital Signs Temp 98.9 F 02/08/19 13:32 Pulse 96 02/08/19 13:32 Resp 16 02/08/19 13:32 BP 132/89 02/08/19 13:32 Pulse Ox Intake & Output 02/07/19 02/08/19 02/08/19 18:59 06:59 18:59 Weight 108.862 kg - Exam Abdomen: Soft, nontender, nondistended Assessment/Plan (1) Morbid obesity Narrative/Plan: Options reviewed with the patient. The patient would prefer not to have any additional fluid removed. We'll obtain records from [facility]. We'll keep band as it is for now. Patient will follow up for reevaluation in 6 months. He will contact me if episodes of vomiting dysphagia or reflux recur. Plan: Date: 02/08/19 Initial Weight: 136.078 kg Initial BMI: 41.8 Current Weight: 108.862 kg Current BMI: 33.5 Type of Surgery: Total Volume in Band: Previous Volume: Volume Removed: Volume Added: Band Size:
== END | disposition home or self-care (01) ==
LOC: BARWHC3 10:36
PROVIDERS: ATTEND Surgery
DX: E66.01 Morbid (severe) obesity due to excess calories (principal); Z68.33 Body mass index [BMI] 33.0-33.9, adult; Z98.84 Bariatric surgery status
CPT/HCPCS: 74220; 99212

== ENCOUNTER → 2019-08-04 | Outpatient (CLI) | payer MEDICAID ==
--- NOTE | 2019-08-04 14:24 | US ---
EXAMINATION TYPE: US scrotum with doppler. Grayscale and color Doppler Duplex imaging performed of jean marie mchugh scrotum. DATE OF EXAM: 08/04/2019 COMPARISON: NONE CLINICAL HISTORY: N50 testicular pain. Right scrotal sac palpable; pain superior to right testicle th at radiates to right hip; patient stated was injured at scrotum 3 weeks before with tree limb. EXAM MEASUREMENTS: TESTICLES: Right Testicle: 4.5 x 2.4 x 3.3 cm Left Testicle: 4.4 x 3.6 x 2.2 cm EPIDIDYMIS HEAD: Right Epididymis: 1.5 x 2.8 x 1.6 cm Left Epididymis: 0.9 x 2.1 x 0.8 cm Right epididymal head cyst noted = 1.2 x 1.4 x 1.3cm. Right testicular appendix is noted. Two scrotal pearls with posterior shadowing are incidentally noted. Doppler performed to assess for testicular vascularity;bilateral color flow and waveforms are seen. Superior to scrotum an elongated hypoechoic area is seen appearing as an abnormal inguinal canal. IMPRESSION: 1. Abnormal appearance of the right inguinal canal however no peristalsis is seen despite repeat imag ing. Correlation for inguinal hernia is recommended with clinical exam and evaluation for reducibilit y is recommended. 2. Right epididymal benign cyst measuring 1.4 cm. 3. Symmetric size of the testicles with no current sonographic evidence of testicular torsion.
== END | disposition home or self-care (01) ==
LOC: RADUSWWP 10:40
PROVIDERS: ATTEND Internal Medicine
DX: N50.3 Cyst of epididymis (principal)
CPT/HCPCS: 76870; 93975

== ENCOUNTER → 2019-10-14 | Outpatient (CLI) | payer MEDICAID ==
--- NOTE | 2019-10-14 10:00 | US ---
EXAMINATION TYPE: US venous doppler duplex LE LT DATE OF EXAM: 10/14/2019 9:48 AM COMPARISON: NONE CLINICAL HISTORY: M79.662,R22.42 PAIN AND SWELLING LT LOWER LEG. Pain left leg, rash and redness left lower leg, history of DVT, patient on Xarelto SIDE PERFORMED: left TECHNIQUE: The lower extremity deep venous system is examined utilizing real time linear array sonog raya with graded compression, doppler sonography and color-flow sonography. VESSELS IMAGED: External Iliac Vein (EIV) Common Femoral Vein Deep Femoral Vein Greater Saphenous Vein * Femoral Vein Popliteal Vein Small Saphenous Vein * Proximal Calf Veins (* superficial vessels) Grayscale, color doppler, spectral doppler imaging performed of the deep veins of the left lower extr emity. There is normal flow, compressibility, vascular waveforms. Left Leg: No evidence of acute DVT at this time IMPRESSION: No sonographic evidence of deep venous thrombosis within the left lower extremity.
== END | disposition home or self-care (01) ==
LOC: RADUSWWP 09:17
PROVIDERS: ATTEND Internal Medicine
DX: R22.42 Localized swelling, mass and lump, left lower limb (principal); M79.662 Pain in left lower leg

== ENCOUNTER → 2020-03-12 | Outpatient (CLI) | payer MEDICAID ==
--- NOTE | 2020-03-12 15:50 | XR ---
EXAMINATION TYPE: XR hand complete LT DATE OF EXAM: 03/12/2020 COMPARISON: NONE HISTORY: 49-year-old male M79.644, a MCP joint of the thumb. TECHNIQUE: 3 views FINDINGS: There is mild marginal spurring at the first CMC joint. No acute fracture, subluxation, or dislocatio n. No periostitis or osteolysis. Joint spaces are maintained. IMPRESSION: Very mild degenerative spurring at the basal joint of the thumb, the first CMC joint.
== END | disposition home or self-care (01) ==
LOC: RADXRMAIN 14:45
PROVIDERS: ATTEND Family Medicine
DX: M79.644 Pain in right finger(s) (principal)

== ENCOUNTER 2020-07-05 11:15 | Day surgery (SDC) | payer MEDICAID ==
[2020-07-03 10:29] VITALS: BMI 31.4
[~2020-07-05 11:15] MED LIST: LACTATED RINGERS 1,000 ML IV SCH; LIDOCAINE 1% (10MG/ML) FOR IV START INTRADERMA PRN
[2020-07-05 11:55] LABS: Glucose,Whole Blood 195 mg/dL (75-99)
[2020-07-05 11:56] VITALS: TEMP 97.7
[2020-07-05] MEDS ORDERED: PROPOFOL 10 MG/ML 20 ML VIAL IV ONE (11:57)
[2020-07-05 12:19] VITALS: RESP 16
[2020-07-05 12:30] VITALS: BP 139/85; PULSE 63
--- NOTE | 2020-07-05 12:46 | P.OP ---
Date of Procedure: 07/05/20 Preoperative Diagnosis: screening Postoperative Diagnosis: sigmoid colon polyp Procedure(s) Performed: Colonoscopy with hot snare polypectomy Anesthesia: MAC Surgeon: Fredrick Crowder Estimated Blood Loss (ml): 0 Condition: stable Disposition: same day Description of Procedure: patient Endo suite placed in left lateral decubitus position underwent sedation per department of anesthesia timeout performed correct patient correct procedure correct site was verified rectal exam was performed no gross abnormalities are noted scope was placed from the rectum to the cecum with ease and slowly withdrawn being sure to visualize all caldwell of the colon on the way out there is scattered sigmoid diverticuli noted there is also a small pedunculated polyp in the sigmoid colon this was removed via hot snare polypectomy. Hemostasis was noted. The scope was retroflexed in the rectum no gross abnormalities are noted scope was withdrawn patient artery procedure well there are no apparent comp locations and need a repeat colonoscopy in 5 years.
== END 2020-07-05 12:46 ==
LOC: ORWHC2ENDO 11:15
PROVIDERS: ATTEND Student in an Organized Health Care Education/Training Program
DX: Z12.11 Encounter for screening for malignant neoplasm of colon (principal); K63.5 Polyp of colon; K57.30 Diverticulosis of large intestine without perforation or abscess without bleeding; I10 Essential (primary) hypertension; E11.9 Type 2 diabetes mellitus without complications; E07.9 Disorder of thyroid, unspecified; K21.9 Gastro-esophageal reflux disease without esophagitis; Z79.84 Long term (current) use of oral hypoglycemic drugs; Z79.899 Other long term (current) drug therapy; Z98.890 Other specified postprocedural states; Z83.3 Family history of diabetes mellitus; Z80.9 Family history of malignant neoplasm, unspecified
CPT/HCPCS: 88305; 45385; J2704

== ENCOUNTER → 2020-09-06 | Outpatient (CLI) | payer MEDICAID ==
[2020-09-06 12:51] LABS: Basophils # (A) 0.1 k/uL (0-0.2); Basophils % (A) 1 %; Eosinophils # (A) 0.2 k/uL (0-0.7); Eosinophils % (A) 3 %; HGB 16.8 gm/dL (13.0-17.5); Lymphocytes # (A) 1.8 k/uL (1.0-4.8); Lymphocytes % (A) 25 %; MCHC 34.4 g/dL (31.0-37.0); MCV 90.4 fL (80.0-100.0); Mean Platelet Volume 7.2; Monocytes # (A) 0.4 k/uL (0-1.0); Monocytes % (A) 6 %; Neutrophils # (A) 4.4 k/uL (1.3-7.7); Neutrophils % (A) 63 %; Platelet Count 217 k/uL (150-450); RBC 5.43 m/uL (4.30-5.90); RDW 13.1 % (11.5-15.5)
[2020-09-06 13:07] LABS: Potassium 4.7 mmol/L (3.5-5.1)
== END | disposition home or self-care (01) ==
LOC: LABPAT 11:34
PROVIDERS: ATTEND Surgery Vascular Surgery
DX: Z01.818 Encounter for other preprocedural examination (principal); I77.1 Stricture of artery
CPT/HCPCS: 80051; 85025

== ENCOUNTER 2020-09-07 12:06 | Day surgery (SDC) | payer MEDICAID ==
[2020-09-05 12:35] VITALS: BMI 31.4
--- NOTE | 2020-09-06 10:11 | HP ---
HISTORY AND PHYSICAL Patient has history of deep vein thrombosis of the left leg in the past. The patient was treated with anticoagulation. The patient developed swelling of the left lower extremity. We did the venous ultrasound, the femoral and vein actually is recanalizing. There was communication between the greater saphenous vein and the proximal femoral vein with communication between greater saphenous vein and the proximal superficial femoral artery. Fistula flow visualized in the greater saphenous vein and the distal popliteal and gastric venous veins remains recannulized. MEDICAL HISTORY: History of diabetes, hypertension. PHYSICAL EXAMINATION: NECK: Supple, trachea central. CHEST: Clear to auscultation. ABDOMEN: Soft. Femoral pulses are palpable. The patient had a COVID test which was negative. IMPRESSION: Fistula flow noted between the greater saphenous vein and femoral artery. PLAN: Angiogram and risks and complications discussed. MMODL / IJN: [id number] /
[~2020-09-07 12:06] MED LIST changes: +ALPRAZolam 0.25 MG TAB PO PRN; +ASPIRIN 325 MG TAB PO PRN; -LACTATED RINGERS 1,000 ML IV SCH; -LIDOCAINE 1% (10MG/ML) FOR IV START INTRADERMA PRN; +SODIUM CHLORIDE 0.9% 1,000 ML in EMPTY BAG 1 BAG IV ONE; +ZOLPIDEM 5 MG TAB PO PRN
[2020-09-07 12:35] LABS: Glucose,Whole Blood 178 mg/dL (75-99)
[2020-09-07 13:00] LABS: Basophils # (A) 0.1 k/uL (0-0.2); Basophils % (A) 1 %; Eosinophils # (A) 0.2 k/uL (0-0.7); Eosinophils % (A) 3 %; HCT 53.7 % (39.0-53.0); Lymphocytes % (A) 29 %; MCH 30.2 pg (25.0-35.0); MCHC 33.6 g/dL (31.0-37.0); MCV 90.1 fL (80.0-100.0); Mean Platelet Volume 7.1; Monocytes # (A) 0.4 k/uL (0-1.0); Monocytes % (A) 6 %; Neutrophils # (A) 4.2 k/uL (1.3-7.7); Neutrophils % (A) 60 %; Platelet Count 230 k/uL (150-450); RBC 5.96 m/uL (4.30-5.90); RDW 13.4 % (11.5-15.5); WBC 6.9 k/uL (3.8-10.6)
[2020-09-07] MEDS ORDERED: MIDAZOLAM 2 MG/2 ML VIAL IVP ONE (13:16)
[2020-09-07] MEDS ORDERED: LIDOCAINE 1% INJ 10MG/ML (20 ML MDV) SQ ONE (13:17)
[2020-09-07 13:19] LABS: African American GFR (CKD) >90 (>60 ml/min/1.73 sqM); Anion Gap 10 mmol/L; Blood Urea Nitrogen 14 mg/dL (9-20); Calcium 9.6 mg/dL (8.4-10.2); Carbon Dioxide 28 mmol/L (22-30); Chloride 101 mmol/L (98-107); Glucose 191 mg/dL (74-99); Non-African American GFR(CKD) >90 (>60 ml/min/1.73 sqM); Potassium 4.3 mmol/L (3.5-5.1); Sodium 139 mmol/L (137-145)
[2020-09-07] MEDS ORDERED: IOPAMIDOL-250 100ML BTL INTRAARTER ONE ×2 (13:39→13:40)
[2020-09-07] MEDS ORDERED: SODIUM CHLORIDE 0.9% 1,000 ML IV SCH (14:00)
[2020-09-07 18:11] VITALS: BP 134/87; PULSE 83; RESP 16; TEMP 98.3
--- NOTE | 2020-09-10 09:05 | IR ---
EXAMINATION TYPE: IR angio abdominal w runoff DATE OF EXAM: 09/07/2020 COMPARISON: NONE HISTORY: Fluoroscopy time. Fluoroscopy was provided to the referring clinician.
== END 2020-09-07 21:35 | disposition home or self-care (01) ==
LOC: CATHCVL 12:06 → 1SOBS 17:03 → CATHCVL 21:35
PROVIDERS: ATTEND Surgery Vascular Surgery
DX: R22.42 Localized swelling, mass and lump, left lower limb (principal); E11.9 Type 2 diabetes mellitus without complications; I10 Essential (primary) hypertension
CPT/HCPCS: 36200; 75625; 75710; 76937; 80048; 85025; C1769 ×4; C1894; J2250; J2001; Q9966

== ENCOUNTER 2022-03-14 12:04 | Day surgery (SDC) | payer MEDICAID ==
[2022-03-13 08:24] VITALS: BMI 31.6
[~2022-03-14 12:04] MED LIST changes: -ALPRAZolam 0.25 MG TAB PO PRN; -ASPIRIN 325 MG TAB PO PRN; +DEXAMETHASONE SOD PHOSPHATE 4 MG/ML 1 ML VIAL IV ONE; +HYDROmorphone 0.5 MG/0.5 ML SYRINGE IVP PRN; +LACTATED RINGERS 1,000 ML IV SCH; +LIDOCAINE 1% (10MG/ML) FOR IV START INTRADERMA PRN; +MIDAZOLAM 2 MG/2 ML VIAL IV PRN; +ONDANSETRON 4 MG/2 ML VIAL IVP ONE; -SODIUM CHLORIDE 0.9% 1,000 ML in EMPTY BAG 1 BAG IV ONE; -ZOLPIDEM 5 MG TAB PO PRN
[2022-03-14 12:53] LABS: Glucose,Whole Blood 171 mg/dL (70-110)
[2022-03-14 12:55] VITALS: RESP 16; TEMP 97
[2022-03-14] MEDS ORDERED: BUPIVACAINE (PF) 0.25% 30 ML VIAL MISCELLANE ONE ×2 (14:31→14:47)
[2022-03-14] MEDS ORDERED: KETAMINE 10 MG/ML 20 ML VIAL ONE (14:34)
[2022-03-14] MEDS ORDERED: fentaNYL (PF) 50 MCG/ML 2 ML AMP ONE (14:34)
[2022-03-14] MEDS ORDERED: PROPOFOL 10 MG/ML 20 ML VIAL IV ONE (14:34)
[2022-03-14] MEDS ORDERED: MIDAZOLAM 2 MG/2 ML VIAL ONE (14:34)
--- NOTE | 2022-03-14 15:17 | P.OP ---
Date of Procedure: 03/14/22 Preoperative Diagnosis: Soft tissue mass left ankle Postoperative Diagnosis: Soft tissue mass left ankle Procedure(s) Performed: Excision of soft tissue mass left ankle Implants: None Anesthesia: MAC Estimated Blood Loss (ml): 1 Pathology: other (Soft tissue mass left ankle) Condition: stable Disposition: PACU Operative Findings: There was a 1.0 cm x 0.7 cm x 0.7 cm mass excised from the anterior aspect of the left ankle. The mass was located in the subcutaneous tissue and superficial to the deep fascia. The lesion had well-defined borders and a deep, dark red color. Description of Procedure: The patient was brought into the operating room and placed on table in the supine position. Timeout was taken to confirm correct patient identifiers, correct lateral malleolus surgery, and correct procedure. When all staff in the room were in agreement with the timeout, the patient was placed under IV sedation anesthesia. A well-padded tourniquet was placed on the left ankle and then 0.9 mL of 0.25% Marcaine was injected superficially proximal to the lesion. The left foot was prepped and draped usual manner. The left foot and ankle were exsanguinated and the tourniquet inflated to 250 motors mercury. Attention was directed over the anterior aspect of the ankle near the tibialis anterior tendon. A lazy S incision was made over the palpable and visible lesion in the area. The incision was deepened down to the skin only and at that point the lesion was identified. It was carefully dissected from the surrounding subcutaneous tissue and epidermis. The lesion had a very deep, dark red coloring. The borders were well-defined and it was easily excised from the surrounding soft tissue. No lesions were identified along the tibialis anterior tendon or deep to the fascia. The lesion was excised in total and will be sent to pathology for evaluation. The wound is thoroughly irrigated with saline. Subcutaneous closure was done with 4-0 Monocryl and skin closure was done with 4-0 Stratafix in a running subcuticular manner. Dermal glue was applied over the incision and allowed to dry. Steri-Strips are placed over the incision, then nonadherent gauze, and then a dry dressings applied to the left foot and ankle. The tourniquet was released and capillary refill return to all digits on the left foot. The patient tolerated the above procedure and anesthesia well. The patient left the operating room to recovery with vital signs stable
[2022-03-14 15:42] VITALS: BP 140/94; PULSE 71
== END 2022-03-14 16:19 | disposition home or self-care (01) ==
LOC: OR 12:04
PROVIDERS: ATTEND Podiatrist
DX: M79.89 Other specified soft tissue disorders (principal); I10 Essential (primary) hypertension; Z86.718 Personal history of other venous thrombosis and embolism; E11.9 Type 2 diabetes mellitus without complications; E07.9 Disorder of thyroid, unspecified; Z79.84 Long term (current) use of oral hypoglycemic drugs; Z79.899 Other long term (current) drug therapy; Z79.82 Long term (current) use of aspirin
CPT/HCPCS: 88305; 88342; 88341; 27618; J2250; J2405; J3010; J2704

== ENCOUNTER → 2024-03-30 | Outpatient (CLI) | payer BC ==
--- NOTE | 2024-03-30 10:16 | CT ---
EXAMINATION TYPE: CT brain wo con CT DLP: 1141 mGycm, Automated exposure control for dose reduction was used. DATE OF EXAM: 03/30/2024 10:07 AM COMPARISON: None. CLINICAL INDICATION:Male, 53 years old with history of I10 HTN G43.909 MIGRAINE R55 SYNCOPE R53.83 FA TIG, MIGRAINE AND DIZZINESS. TECHNIQUE: Brain: Multiple axial CT images of the brain were obtained without IV contrast. . Coronal and sagitta l reformats reviewed. FINDINGS: Brain: Extra-axial spaces: No abnormal extra-axial fluid collections. Ventricular system: Within normal limits Cerebral parenchyma: No acute intraparenchymal hemorrhage or mass effect. The panchal-white junction is well differentiated. Cerebellum: Unremarkable. Mass effect: No evidence of midline shift. Intracranial vasculature: unremarkable Soft tissues: Normal. Calvarium/osseous structures: No depressed skull fracture. Paranasal sinuses and mastoid air cells: Mild mucosal thickening of the bilateral ethmoid sinuses. Mi nimal mucosal thickening in the bilateral sphenoid sinuses. The mastoid air cells are clear. Visualized orbits: Orbital contents are intact. IMPRESSION: No acute intracranial process.
== END | disposition home or self-care (01) ==
LOC: RADCTMAIN 09:40
PROVIDERS: ATTEND Family Medicine
DX: I10 Essential (primary) hypertension (principal); G43.909 Migraine, unspecified, not intractable, without status migrainosus; R55 Syncope and collapse; R53.83 Other fatigue
CPT/HCPCS: 70450

== ENCOUNTER → 2024-04-05 | Outpatient (CLI) | payer BC ==
--- NOTE | 2024-04-05 16:19 | US ---
EXAMINATION TYPE: US carotid duplex BILAT DATE OF EXAM: 04/05/2024 COMPARISON: NONE CLINICAL INDICATION: Male, 53 years old with history of I10 HTN,G43.909 HEADACHE,R55 SYNCOPE AND SHANON APSE; TECHNIQUE: Carotid duplex ultrasound examination. Indirect Doppler criteria was utilized. FINDINGS: EXAM MEASUREMENTS: RIGHT: Peak Systolic Velocity (PSV) cm/sec ----- Right CCA: 71.0 ----- Right ICA: 86.4 ----- Right ECA: 96.5 ICA/CCA ratio: 1.2 RIGHT: End Diastole cm/sec ----- Right CCA: 16.0 ----- Right ICA: 25.9 ----- Right ECA: 9.8 LEFT: Peak Systolic Velocity (PSV) cm/sec ----- Left CCA: 73.2 ----- Left ICA: 66.3 ----- Left ECA: 76.3 ICA/CCA ratio: 0.9 LEFT: End Diastole cm/sec ----- Left CCA: 17.1 ----- Left ICA: 23.6 ----- Left ECA: 6.2 VERTEBRALS (direction of flow): Right Vertebral: Antegrade Left Vertebral: Antegrade Rhythm: Normal No significant stenosis IMPRESSION: Less than 50% stenosis of the bilateral carotid bifurcations. Criteria for Assigning % of Stenosis / Diameter reduction (Estimation based on the indirect measurements of the internal carotid artery velocities (ICA PSV). 1. Normal (no stenosis)=ICA PSV < 125 cm/s: ratio < 2.0: ICA EDV<40 cm/s. 2. Less than 50% stenosis=ICA PSV < 125 cm/s: ratio < 2.0: ICA EDV<40 cm/s. 3. 50 to 69% stenosis=ICA PSV of 125 to 230 cm/s: ration 2.0 ? 4.0: ICA EDV 40-100 cm/s. 4. Greater than 70% stenosis to near occlusion= ICA PSV > 230 cm/s: ratio > 4.0: ICA EDV > 100 cm/s. 5. Near occlusion= ICA PSV velocities may be low or undetectable: variable ratio and ICA EDV. 6. Total occlusion=unable to detect flow.
== END | disposition home or self-care (01) ==
LOC: RADUSWWP 15:10
PROVIDERS: ATTEND Family Medicine
DX: I65.23 Occlusion and stenosis of bilateral carotid arteries (principal); I10 Essential (primary) hypertension; G43.909 Migraine, unspecified, not intractable, without status migrainosus
CPT/HCPCS: 93880

== ENCOUNTER 2025-03-28 07:37 | Day surgery (SDC) | payer BC ==
[2025-03-27 09:55] VITALS: BMI 30.1
[~2025-03-28 07:37] MED LIST changes: -DEXAMETHASONE SOD PHOSPHATE 4 MG/ML 1 ML VIAL IV ONE; -HYDROmorphone 0.5 MG/0.5 ML SYRINGE IVP PRN; -LACTATED RINGERS 1,000 ML IV SCH; -MIDAZOLAM 2 MG/2 ML VIAL IV PRN; -ONDANSETRON 4 MG/2 ML VIAL IVP ONE; +ONDANSETRON 4 MG/2 ML VIAL IVP PRN
[2025-03-28 08:06] VITALS: TEMP 97.1
[2025-03-28 08:16] LABS: Glucose,Whole Blood 118 mg/dL (70-110)
[2025-03-28] MEDS: IV FLUID CONTINUATION 1,000 ML IV ONE (08:17)
[2025-03-28] MEDS: LACTATED RINGERS 1,000 ML IV SCH (08:18)
[2025-03-28] MEDS ORDERED: PROPOFOL 10 MG/ML 20 ML VIAL IV ONE (08:37)
--- NOTE | 2025-03-28 08:40 | P.GSHP ---
History of Present Illness H&P Date: 03/28/25 Chief Complaint: Colon cancer screening with history of polyps 54-year-old male here for colonoscopy. Last colonoscopy 5 to 6 years ago. Apparently was told he had polyps at that time. No family history of colon cancer. No bowel complaints. Was told to have a repeat in 3 years. Past Medical History Past Medical History: Diabetes Mellitus, Deep Vein Thrombosis (DVT), Hyperlipidemia, Osteoarthritis (OA), Thyroid Disorder, Vascular Disorder Additional Past Medical History / Comment(s): soft tissue mass left ankle,hx DVT in left leg 2018,varicose veins left leg History of Any Multi-Drug Resistant Organisms: None Reported Past Surgical History: Appendectomy, Bariatric Surgery, Orthopedic Surgery Additional Past Surgical History / Comment(s): lap band 2008-fluid present thinks 9cc. RT KNEE ACL REPAIR, colonoscopy Past Anesthesia/Blood Transfusion Reactions: No Reported Reaction Additional Past Anesthesia/Blood Transfusion Reaction / Comment(s): HAS NEVER RECEIVED ANY BLOOD TRANSFUSION Smoking Status: Never smoker - Past Family History Mother Family Medical History: Diabetes Mellitus Father Family Medical History: Cancer Additional Family Medical History / Comment(s): METASTAITC LUNG CANCER. PAST HEAVY SMOKER Medications and Allergies Home Medications Medication Instructions Recorded Confirmed Type Empagliflozin [Jardiance] 25 mg PO DAILY 10/22/18 03/27/25 History metFORMIN HCL ER [Glucophage XR] 1,000 mg PO AC-BID 10/22/18 03/27/25 History sitaGLIPtin [Januvia] 100 mg PO DAILY 10/22/18 03/27/25 History Levothyroxine Sodium [Synthroid] 50 mcg PO QAM 07/05/20 03/27/25 History Aspirin 81 mg PO DAILY 09/05/20 03/27/25 History Semaglutide [Ozempic] 1 mg SQ MO 03/13/22 03/27/25 History Simvastatin [Zocor] 20 mg PO HS 03/13/22 03/27/25 History Allergies Allergy/AdvReac Type Severity Reaction Status Date / Time No Known Allergies Allergy Verified 03/28/25 07:56 Surgical - Exam Vital Signs Temp Pulse Resp BP Pulse Ox 97.1 F L 81 16 132/93 97 03/28/25 08:05 03/28/25 08:05 03/28/25 08:05 03/28/25 08:05 03/28/25 08:05 Physical exam: General: Well-developed, well-nourished HEENT: Normocephalic, sclerae nonicteric Abdomen: Nontender, nondistended Extremities: No edema Neuro: Alert and oriented Results - Labs Abnormal Lab Results - Last 24 Hours (Table) 03/28/25 Range/Units 08:15 POC Glucose (mg/dL) 118 H (70-110) mg/dL Assessment and Plan (1) Colon cancer screening Narrative/Plan: Will proceed with colonoscopy at this time. Current Visit: Yes Status: Acute Code(s): Z12.11 - ENCOUNTER FOR SCREENING FOR MALIGNANT NEOPLASM OF COLON SNOMED Code(s): 778391009
--- NOTE | 2025-03-28 08:52 | P.PCN ---
Date of Procedure: 03/28/25 Procedure(s) Performed: PREOPERATIVE DIAGNOSIS: Colon cancer screening with history of polyps POSTOPERATIVE DIAGNOSIS: Cecal polyp, diverticulosis PROCEDURE: Colonoscopy with snare polypectomy ANESTHESIA: MAC SURGEON: Josias Pastor M.D. SPECIMENS: Cecal polyp ENDOSCOPIC PROCEDURE: The patient was placed on the endoscopy table in the left decubitus position. The Olympus colonoscope was inserted into the anus and passed under direct visualization to the base of the cecum. The appendiceal orifice was visualized. From that point the scope was slowly withdrawn inspecting all surfaces carefully. There was a small sessile polyp measuring only about 3 to 4 mm at the base of the cecum. This was removed using the snare with cautery technique. No bleeding was seen. The remainder of the ascending transverse descending sigmoid and rectum was normal with the exception of left- sided diverticulosis. Digital rectal examination was normal. The patient was taken to the recovery room in stable condition per anesthesia guidelines. RECOMMENDATIONS: Await biopsy results. Recommend repeat colonoscopy 5 to 7 years.
[2025-03-28 09:11] VITALS: BP 153/92; PULSE 75; RESP 16
== END 2025-03-28 09:28 | disposition home or self-care (01) ==
LOC: ORWHC2ENDO 07:37
PROVIDERS: ATTEND Surgery
DX: Z12.11 Encounter for screening for malignant neoplasm of colon (principal); K63.5 Polyp of colon; K57.30 Diverticulosis of large intestine without perforation or abscess without bleeding; E11.9 Type 2 diabetes mellitus without complications; E78.5 Hyperlipidemia, unspecified; E03.9 Hypothyroidism, unspecified; M19.90 Unspecified osteoarthritis, unspecified site; Z79.84 Long term (current) use of oral hypoglycemic drugs; Z79.890 Hormone replacement therapy; Z86.718 Personal history of other venous thrombosis and embolism; Z90.49 Acquired absence of other specified parts of digestive tract; Z98.84 Bariatric surgery status; Z79.899 Other long term (current) drug therapy; Z79.82 Long term (current) use of aspirin
CPT/HCPCS: 88305; 45385; J2704